=== PATIENT | female | born 1995 | race Caucasian/White ===

== ENCOUNTER 2016-08-29 16:19 | Outpatient (CLI) | payer BC, OTHER | END 2016-08-29 23:59 | disposition EMS.NT | LOC: EMS 16:19 | PROVIDERS: ATTEND Surgery | DX: Z04.1 Encounter for examination and observation following transport accident (principal); V43.52XA Car driver injured in collision with other type car in traffic accident, initial encounter; W22.11XA Striking against or struck by driver side automobile airbag, initial encounter; Y92.413 State road as the place of occurrence of the external cause ==